=== PATIENT | female | born 1975 | race Caucasian/White ===

== ENCOUNTER 2020-05-10 21:04 | Emergency (ER) | payer BC ==
[~2020-05-10] VITALS: Ht 160 cm; Wt 49.9 kg
[2020-05-10 22:02] LABS: ABSOLUTE EOSINOPHILS 0.3 thou/uL (0.0-0.7); ABSOLUTE LYMPHOCYTES 4.4 thou/uL (0.8-5.3); ABSOLUTE MONOCYTES 0.7 thou/uL (0.0-1.2); ABSOLUTE NEUTROPHILS 3.5 thou/uL (1.6-8.1); BASOPHILS 0.6 %; EOSINOPHILS 3.4 %; HEMATOCRIT 32.9 % (37.0-47.0); HEMOGLOBIN 11.3 gm/dL (12.0-15.0); LYMPHOCYTES 48.9 %; MCH 30.3 pg (26.0-34.0); MCHC 34.4 g/dL (28.0-37.0); MONOCYTES 7.4 %; MPV 9.1 fl. (7.2-11.1); NUCLEATED RBCS 0 /100WBC; PLATELET COUNT* 169 thou/uL (150-400); POLYS 39.7 %; RBC 3.74 mil/uL (4.20-5.00); RDW-CV 14.1 % (10.5-14.5); WBC 8.9 thou/uL (4.0-11.0)
[2020-05-10 22:13] LABS: CALCIUM 7.6 mg/dL (8.5-10.1); POTASSIUM 3.4 mmol/L (3.5-5.1)
[2020-05-10 22:18] LABS: ALBUMIN 3.4 g/dL (3.4-5.0); TOTAL BILIRUBIN 0.2 mg/dL (<0.1-1.0); TOTAL PROTEIN 6.5 g/dL (6.4-8.2)
[2020-05-10] MEDS ORDERED: XANAX 0.5 MG0.5 MG PO (22:50)
[2020-05-10 22:55] VITALS: BP 97/58
--- NOTE | 2020-05-11 14:16 | EKG ---
[place] [address] ELECTROCARDIOGRAM REPORT Name: REYNA FOY [id number] Admission: 05/10/20 Attend Phys: Discharge: 05/10/20 Date of : 79 Date of Service: 05/10/202115 Report #: [id number] THIS REPORT FOR: //name// [facility] ED Test Date: 2020-05-10 Test Time: 21:16:12 Pat Name: REYNA FOY Department: Room: Gender: Public Relations Consultant: [place] : 1975 Requested By: Jae Henriquez Order Number: [id number] MD: Reuben Avery Measurements Intervals Forbes Rate: 61 P: 12 MO: 157 QRS: 48 QRSD: 90 T: 58 QT: 415 QTc: 418 Interpretive Statements Sinus rhythm No previous ECG available for comparison Electronically Signed On 05-11-2020 14:15:59 CDT by Reuben Avery [email or web address] <ELECTRONICALLY SIGNED> By: Reuben Avery MD, [facility] 05/11/20 1415 15 15 Reuben Avery MD, FACC /EPI
== END 2020-05-10 22:56 | disposition home or self-care (01) ==
LOC: M.ERS 21:04
PROVIDERS: Family Medicine
DX: B34.9 Viral infection, unspecified (principal); Z20.828 Contact with and (suspected) exposure to other viral communicable diseases

== ENCOUNTER → 2021-09-21 | Outpatient (CLI) | payer BC ==
[~2021-09-21] MED LIST: XANAX 0.5 MG0.5 MG PO
== END ==
LOC: M.ULTRA 08:20
PROVIDERS: ATTEND Family Medicine
DX: D25.9 Leiomyoma of uterus, unspecified (principal); N84.0 Polyp of corpus uteri; N92.1 Excessive and frequent menstruation with irregular cycle